=== PATIENT | female | born 1990 | race Hispanic/Latino ===

== ENCOUNTER 2019-08-24 14:47 | Emergency (ER) | payer SELFPAY ==
[~2019-08-24] VITALS: Ht 157.5 cm; Wt 62.6 kg
--- NOTE | 2019-08-24 15:40 | Emergency Department Note ---
History of Present Illnes History of Present Illness Chief Complaint: Flu Like Symptoms History of Present Illness This is a 29 year old female Chief Complaint Comment PT. IS WORRIED SHE MAY HAVE COVID. STATES FOR PAST WEEK HAS HAD HEADACHE, VOMITING, DIARRHEA, COUGH AND DECREASED TASTE . Historian: Patient Arrival Mode: Car Onset (how long ago): day(s) (5) Location: THROAT Quality: BURNING Radiation: Denies non-radiation, Denies back, Denies neck, Denies extremity, Denies abdomen, Denies periumbilical, Denies flank, Denies proximal, Denies distal, Denies other Severity: mild Onset quality: gradual Duration (how long): day(s) (4) Timing of current episode: constant Progression: waxing and waning Chronicity: new Context: Denies recent illness, Denies recent surgery, Denies recent immobilization, Denies recent travel, Denies trauma/injury, Denies new medications, Denies hx of DVT/PE, Denies non-compliance w/ medications, Denies other Relieving factors: none Exacerbating factors: none Associated symptoms: Reports denies other symptoms Treatments prior to arrival: none Past Medical/Family History Physician Review I have reviewed the patient's past medical and family history. Any updates have been documented here. Past Medical History Recent Fever: No Clinical Suspicion of Infectio: No New/Unexplained Change in Ment: No Past Medical History: None Past Surgical History: None Social History Smoking Cessation: Never Smoker Alcohol Use: None Any Illegal Drug Use: No Physically hurt or threatened: No Other Any Pre-Existing Lines (PICC,: No Review of Systems Review of Systems Constitutional: Reports no symptoms EENTM: Reports as per HPI Cardiovascular: Reports no symptoms Respiratory: Reports no symptoms Gastrointestinal: Reports no symptoms Genitourinary: Reports no symptoms Musculoskeletal: Reports no symptoms Integumentary: Reports no symptoms Neurological: Reports no symptoms Psychological: Reports no symptoms Endocrine: Reports no symptoms Hematological/Lymphatic: Reports no symptoms Physical Exam Related Data Triage Vital Signs Vital Signs Date Time Temp Pulse Resp B/P (MAP) Pulse Ox O2 Delivery O2 Flow Rate FiO2 08/24/19 15:07 97.8 80 16 130/53 99 Room Air Vital signs reviewed: Yes Physical Exam CONSTITUTIONAL Constitutional: Present well-developed, Present well-nourished HENT HENT: Present normocephalic, Present atraumatic, Present oropharynx clear/moist, Present nose normal, Present erythema HENT L/R: Present left ext ear normal, Present right ext ear normal EYES Eyes: Reports PERRL, Reports conjunctivae normal NECK Neck: Present ROM normal PULMONARY Pulmonary: Present effort normal, Present breath sounds normal CARDIOVASCULAR Cardiovascular: Present regular rhythm, Present heart sounds normal, Present capillary refill normal, Present normal rate GASTROINTESTINAL Abdominal: Present soft, Present nontender, Present bowel sounds normal GENITOURINARY Genitourinary: Present exam deferred SKIN Skin: Present warm, Present dry MUSCULOSKELETAL Musculoskeletal: Present ROM normal NEUROLOGICAL Neurological: Present alert, Present oriented x 3, Present no gross motor or sensory deficits PSYCHOLOGICAL Psychological: Present mood/affect normal, Present judgement normal Results Laboratory Lab results reviewed: Yes Assessment & Plan Medical Decision Making MDM PHARYNGITIS COVID Reassessment Reassessment time: 15:38 Reassessment SAME Assessment & Plan Final Impression: (1) Acute pharyngitis (2) Myalgia (3) Acute bronchitis Depart Disposition: HOME, SELF-CARE Last Vital Signs Date Time Temp Pulse Resp B/P (MAP) Pulse Ox O2 Delivery O2 Flow Rate FiO2 08/24/19 15:07 97.8 80 16 130/53 99 Room Air Home Meds Active Scripts Cephalexin Monohydrate (KEFLEX) 500 Mg Capsule, 500 MG PO Q6H, #28 TAB 0 Refills Prov:ADOLPH FERGUSON MD 08/24/19 ADOLPH FERGUSON MD Aug 24, 2019 15:40
[2019-08-24] MEDS ORDERED: KEFLEX500 MG PO (15:49)
== END 2019-08-24 16:02 | disposition home or self-care (01) ==
LOC: FSED 14:47
DX: J20.9 Acute bronchitis, unspecified (principal); J02.9 Acute pharyngitis, unspecified; M79.10 Myalgia, unspecified site
CPT/HCPCS: 83518; 99283